=== PATIENT | male | born 1960 | race Caucasian/White ===

== ENCOUNTER → 2019-05-01 | Outpatient (CLI) | payer BC ==
[~2019-05-01] MED LIST: BUPROPRION; CEPHALEXIN500 M1 PO; CHOLESTEROL MED; NO HOME MEDICATIONS; PRINVIL
== END ==
LOC: MHCPAIN 08:57
DX: M47.817 Spondylosis without myelopathy or radiculopathy, lumbosacral region (principal); M54.16 Radiculopathy, lumbar region
CPT/HCPCS: G0463